=== PATIENT | female | born 1985 | race American Indian/Alaskan Native ===

== ENCOUNTER 2017-06-18 22:59 | Inpatient (IN) | payer MEDICAID ==
[2017-06-18] MEDS ORDERED: NITRO-BID 2% TP ONE (23:50)
[2017-06-18] MEDS ORDERED: LASIX IV ONE (23:51)
[2017-06-19 00:02] LABS: Basophils # (Auto) 0.1 K/mm3 (0.0-0.1); Basophils % (Auto) 1.4 % (0.0-1.8); Eosinophils % (Auto) 0.6 % (0.0-4.3); Lymphocytes # (Auto) 1.7 K/mm3 (1.2-5.4); Lymphocytes % (Auto) 27.1 % (13.4-35.0); Mean Corpuscular HGB Conc 30 % (30-34); Mean Corpuscular Volume 73 fl (79-97); Monocytes # (Auto) 0.3 K/mm3 (0.0-0.8); Monocytes % (Auto) 4.7 % (0.0-7.3); Platelet Count 383 K/mm3 (140-440); Red Blood Count 5.38 M/mm3 (3.65-5.03); Red Cell Distribution Width 17.6 % (13.2-15.2)
[2017-06-19 00:09] LABS: Hematocrit 39.5 % (30.3-42.9); Mean Corpuscular Hemoglobin 22 pg (28-32)
[2017-06-19 00:14] LABS: INR 1.23 (0.87-1.13)
[2017-06-19 00:15] LABS: Partial Thromboplastin Time 31.9 Sec. (24.2-36.6)
--- NOTE | 2017-06-19 00:22 | XRay Report ---
FINAL REPORT EXAM: XR CHEST ROUTINE 2V HISTORY: Shortness of breath TECHNIQUE: 2 views of the chest. PRIORS: None. FINDINGS: The cardiac silhouette is enlarged. There prominence of the central pulmonary vascularity and interstitial markings. There is mild blunting of the bilateral costophrenic angles. The bones and soft tissues are unremarkable. IMPRESSION: Findings are consistent with acute CHF. Small bilateral pleural effusions.
[2017-06-19 00:31] LABS: BUN/Creatinine Ratio 10; Blood Urea Nitrogen 9 mg/dL (7-17); Calcium 8.3 mg/dL (8.4-10.2); Hemolysis Index 4
--- NOTE | 2017-06-19 00:53 | Emergency Department Report ---
ED Shortness of Breath HPI - General Chief Complaint: Dyspnea/Respdistress Stated Complaint: CHF/SOB Time Seen by Provider: 06/18/17 23:51 Source: patient, RN/MD (cardiology outpatient record), old records reviewed Mode of arrival: Ambulatory Limitations: No Limitations - History of Present Illness Initial Comments: 32-year-old female with no known previously diagnosed medical problems was sent to the hospital by [facility] with the diagnosis of hypertension , cardiomyopathy, and CHF exacerbation. Patient is about 8 weeks . This was her third . She reports that during this she was hypertensive and was treated with medications and also had a diagnosis of preeclampsia. Since her delivery patient has been having progressively worsening shortness of breath, dyspnea on exertion, and orthopnea. Patient also has persistent lower extremity edema. Patient was started on Lasix 20 mg twice a day as outpatient and was sent for cardiology for echocardiogram. As per [facility] note patient had a echocardiogram that showed a 4 chamber dilated cardiomyopathy with EF of 15-20% . Patient also had moderate MR and a small circumferential pericardial effusion. Hospital admission was recommended and treatment IV diuretics, afterload agents, and beta blockers. Recommend repeat echo prior to discharge for follow-up effusion. Patient states she is not breast-feeding at this time. Patient complains of cough occasionally productive of blood-tinged mucus. Patient has mild to moderate chest pain with coughing only. - Related Data Allergies Allergy/AdvReac Type Severity Reaction Status Date / Time seafood Allergy Swelling Uncoded 06/18/17 23:21 ED Review of Systems ROS: Stated complaint: CHF/SOB Other details as noted in HPI Comment: All other systems reviewed and negative Other: Constitutional: No fevers chills Eyes: No eye pain visual changes ENT: No ear pain or throat pain Neck: Denies pain Respiratory: as per hpi Cardiovascular: Denies palpitations, syncope GI: Denies abdominal pain, nausea, vomiting, diarrhea : Denies dysuria Musculoskeletal: b/l edema Skin: Denies rash, lesions, erythema Neurologic: Denies headache, numbness, weakness Psychiatric: Denies suicidal ideation, hallucinations ED Past Medical Hx - Past Medical History Hx Hypertension: Yes Hx Congestive Heart Failure: Yes - Surgical History Additional Surgical History: . breast reduction - Social History Smoking Status: Never Smoker Substance Use Type: None ED Physical Exam - General Limitations: No Limitations - Other Other exam information: General: No limitations, moderate respiratory distress Head exam: Atraumatic, normocephalic Eyes exam: Normal appearance ENT: Moist mucous membrane, normal oropharynx Neck exam: Normal inspection, Respiratory exam: Tachypnea, mild accessory muscle use, crackles at the bases Cardiovascular: Tachycardic regular rhythm Abdomen: Soft, nondistended, and nontender, with normal bowel sounds, no rebound, or guarding Extremity: Full range of motion, bilateral lower extremity edema tenderness Back: Normal Inspection, full range of motion, no tenderness Neurologic: Alert, oriented x3, cranial nerves intact, no motor or sensory deficit Psychiatric: normal affect, normal mood Skin: Warm, dry, intact ED Course Vital Signs 06/18/17 23:17 Temperature 97.4 F L Pulse Rate 117 H Respiratory 28 H Rate Blood Pressure 185/139 O2 Sat by Pulse 94 Oximetry - Reevaluation(s) Reevaluation #1: 06/19/17 01:03 ed treatment initiated with diuretic therapy and blood pressure medications ED Medical Decision Making - Lab Data Result diagrams: 06/18/17 23:41 06/18/17 23:41 Lab Results 06/18/17 06/18/17 06/18/17 Range/Units 23:41 23:41 23:56 WBC 6.4 (4.5-11.0) K/mm3 RBC 5.38 H (3.65-5.03) M/mm3 Hgb 12.0 (10.1-14.3) gm/dl Hct 39.5 (30.3-42.9) % MCV 73 L (79-97) fl MCH 22 L (28-32) pg MCHC 30 (30-34) % RDW 17.6 H (13.2-15.2) % Plt Count 383 (140-440) K/mm3 Lymph % (Auto) 27.1 (13.4-35.0) % [place] % (Auto) 4.7 (0.0-7.3) % Eos % (Auto) 0.6 (0.0-4.3) % Baso % (Auto) 1.4 (0.0-1.8) % Lymph # 1.7 (1.2-5.4) K/mm3 [place] # 0.3 (0.0-0.8) K/mm3 Eos # 0.0 (0.0-0.4) K/mm3 Baso # 0.1 (0.0-0.1) K/mm3 Seg Neutrophils % 66.2 (40.0-70.0) % Seg Neutrophils # 4.3 (1.8-7.7) K/mm3 PT 16.2 H (12.2-14.9) Sec. INR 1.23 H (0.87-1.13) APTT 31.9 (24.2-36.6) Sec. Sodium 136 L (137-145) mmol/L Potassium 4.2 (3.6-5.0) mmol/L Chloride 98.1 (98-107) mmol/L Carbon Dioxide 25 (22-30) mmol/L Anion Gap 17 mmol/L BUN 9 (7-17) mg/dL Creatinine 0.9 (0.7-1.2) mg/dL Estimated GFR > 60 ml/min BUN/Creatinine Ratio 10 % Glucose 296 H (65-100) mg/dL Calcium 8.3 L (8.4-10.2) mg/dL Troponin T 0.025 (0.00-0.029) ng/mL NT-Pro-B Natriuret Pep 3187 H (0-450) pg/mL - EKG Data -: EKG Interpreted by Ut EKG shows normal: sinus rhythm, axis (5), QRS complexes (89), ST-T waves (no stemi) Rate: tachycardia (116) - EKG Data When compared to previous EKG there are: no significant change - Radiology Data Radiology results: report reviewed Chest x-ray read by radiologist Findings consistent with acute CHF. Small bilateral pleural effusion - Medical Decision Making cardiomyopathy Associated with acute CHF Associated with uncontrolled hypertension Nitro paste initiated Lasix 60 mg IV initiated Hospitalist informed for admission pee heart cardiac consultation hyperglycemia regular insulin initiated possible new onset dm but unlikely a fasting level - Differential Diagnosis CHF, SD, PE, cardiomyopathy, hypertensive emergency Critical Care Time: No Critical care attestation.: If time is entered above; I have spent that time in minutes in the direct care of this critically ill patient, excluding procedure time. ED Disposition Clinical Impression: cardiomyopathy, CHF exacerbation, Elevated glucose level Disposition: OP ADMIT IP TO THIS HOSP Is pt being admited?: Yes Condition: Stable Time of Disposition: 00:53 (Dr Flowers/hosp)
[2017-06-19] MEDS ORDERED: DULCOLAX PR PRN (02:02)
[2017-06-19] MEDS ORDERED: ZOFRAN IV PRN (02:02)
[2017-06-19] MEDS ORDERED: MILK OF MAGNESIA PO PRN (02:02)
[2017-06-19] MEDS ORDERED: NACL 0.9% 1000 ML 1,000 ML ONE (02:29)
[2017-06-19] MEDS ORDERED: APRESOLINE IV PRN (02:36)
[2017-06-19] MEDS ORDERED: APRESOLINE IV ONE (02:39)
[2017-06-19] MEDS ORDERED: APRESOLINE ONE (02:44)
[2017-06-19] MEDS ORDERED: TYLENOL ONE (02:45)
[2017-06-19] MEDS: TYLENOL PO PRN ×2 (02:54→06:49)
--- NOTE | 2017-06-19 03:43 | History and Physical Report ---
History of Present Illness Date of examination: 06/19/17 Date of admission: 06/19/17 02:02 History of present illness: 32-year-old woman with a history of hypertension, whose 2 months and was sent to the emergency room by cardiology for evaluation of her shortness of breath. Symptoms of shortness of breath, nonproductive cough is been going on since delivery of her child, also complaining of PND, orthopnea, lower extremity edema. She was placed on Lasix over the last 2 weeks but her symptoms have progressed. She had an echocardiogram in the [facility] office which showed an EF of 15-20%, moderate mitral regurg. Also complaining of chest pain, pain in the epigastric area, worse with coughing, intensity followed 10, no radiation, she cannot identify exacerbating or relieving factors. No nausea vomiting, diaphoresis or palpitation. Patient had preeclampsia during her Review Of Systems: Constitutional: no weight loss Ears, eyes, nose, mouth and throat: no nasal congestion, no nasal discharge, no sinus pressure, blurry vision, diplopia Neck: No neck pain or rigidity. Cardiovascular: No palpitations Respiratory: +shortness of breath, cough Gastrointestinal: No abdominal pain, hematochezia Genitourinary : no dysuria, frequency , hematuria Musculoskeletal: no muscle ache Integumentary: no rash, no pruritis Neurological: no parathesias, focal weakness Endocrine: no cold or heat intolerance, no polyuria or polydipsia Hematologic/Lymphatic: no easy bruising, no easy bleeding, no gland swelling Allergic/Immunologic: no urticaria, no angioedema. PAST MEDICAL HISTORY:hypertension PAST SURGICAL HISTORY: 3, breast reduction FAMILY HISTORY:hypertension SOCIAL HISTORY: Denies alcohol, tobacco, drugs Medications and Allergies Allergies Allergy/AdvReac Type Severity Reaction Status Date / Time seafood Allergy Swelling Uncoded 06/18/17 23:21 Active Meds: Active Medications Acetaminophen (Tylenol) 650 mg PO Q4H PRN PRN Reason: Pain MILD(1-3)/Fever >100.5/NUNEZ Last Admin: 06/19/17 02:54 Dose: 650 mg Aspirin (Baby Aspirin) 81 mg PO QDAY EZRA Bisacodyl (Dulcolax) 10 mg NM QDAY PRN PRN Reason: Constipation unrelieved by MOM Carvedilol (Coreg) 25 mg PO BID EZRA Furosemide (Lasix) 40 mg IV BID@0600,1800 EZRA Hydralazine HCl (Apresoline) 5 mg IV Q6H PRN PRN Reason: blood pressure Lisinopril (Zestril) 2.5 mg PO QDAY EZRA Magnesium Hydroxide (Milk Of Magnesia) 30 ml PO Q4H PRN PRN Reason: Constipation Ondansetron HCl (Zofran) 4 mg IV Q8H PRN PRN Reason: N/V unrelieved by Reglan Exam - Physical Exam Narrative exam: Gen. appearance: Patient lying in bed in no acute distress HEENT: Normocephalic/atraumatic, pupils equal round reactive to light, extra occular movement intact, no scleral icterus, no JVD or thyromegaly or nodule, neck is supple, mucous membrane moist, no erythema or exudate Heart: S1-S2, regular rate and rhythm Lungs: Crackles bilateral breathing comfortable Abdomen: Positive bowel sounds, nontender, nondistended, no organomegaly Extremities: No edema, cyanosis, clubbing Neuro:: Oriented 3 , cranial nerves II-12 intact, speech, motor intact Skin: No rash, nodules, warm dry - Constitutional Vitals: Temp Pulse Resp BP Pulse Ox 97.4 F L 117 H 22 185/137 99 06/18/17 23:17 06/19/17 02:53 06/19/17 02:31 06/19/17 02:53 06/19/17 02:31 Results - Labs CBC & Chem 7: 06/18/17 23:41 06/18/17 23:41 Labs: Abnormal lab results 06/18/17 06/18/17 06/18/17 Range/Units 23:41 23:41 23:56 RBC 5.38 H (3.65-5.03) M/mm3 MCV 73 L (79-97) fl MCH 22 L (28-32) pg RDW 17.6 H (13.2-15.2) % PT 16.2 H (12.2-14.9) Sec. INR 1.23 H (0.87-1.13) D-Dimer (0-234) ng/mlDDU Sodium 136 L (137-145) mmol/L Glucose 296 H (65-100) mg/dL POC Glucose (70-105) Calcium 8.3 L (8.4-10.2) mg/dL NT-Pro-B Natriuret Pep 3187 H (0-450) pg/mL 06/19/17 06/19/17 Range/Units 01:23 02:27 RBC (3.65-5.03) M/mm3 MCV (79-97) fl MCH (28-32) pg RDW (13.2-15.2) % PT (12.2-14.9) Sec. INR (0.87-1.13) D-Dimer 614.05 H (0-234) ng/mlDDU Sodium (137-145) mmol/L Glucose (65-100) mg/dL POC Glucose 250 H (70-105) Calcium (8.4-10.2) mg/dL NT-Pro-B Natriuret Pep (0-450) pg/mL - Imaging and Cardiology EKG: image reviewed Chest x-ray: image reviewed Assessment and Plan Assessment Acute on chronic CHF, systolic dysfunction, Hypertension Plan Admit to medicine Diurese with IV Lasix Monitor I's and O's, daily weights Start beta brian, ZENA inhibitor, aspirin Check cardiac enzymes, consult cardiology Echo was done recently Check CT chest, rule out PE DVT prophylaxis
--- NOTE | 2017-06-19 04:01 | Cat Scan Report ---
FINAL REPORT EXAM: CT ANGIO CHEST HISTORY: , eval for PE SOB COMPARISON: Chest x-ray from June 18, 2017. TECHNIQUE: Contiguous axial images were obtained. Additional sagittal and coronal reformatted images were obtained. Administration of IV contrast given per institution protocol. Images submitted for interpretation. 100 cc Omnipaque 350. Max intensity projection images. FINDINGS: Mild cardiac enlargement. Small pericardial effusion measuring 10 millimeters in greatest thickness. Thoracic aorta is normal in caliber. No dissection. No pulmonary embolus. No pathologically enlarged intrathoracic or axillary lymph nodes. Small left and small to moderate right-sided pleural effusions. Diffuse bronchial wall thickening septal thickening throughout the lungs concerning for edema. At the medial margin of the right upper lobe there is a focal airspace consolidation measuring approximately 5 x 4 centimeters. This is concerning for focus of superimposed pneumonia. There is several hypodense splenic lesions. These may reflect small cysts or hemangiomas. At the superior margin right hepatic lobe there is a 5 millimeter low-attenuation lesion. This is too small to accurately characterize but may reflect a small cyst. Bony thorax is grossly intact. IMPRESSION: No pulmonary embolus. Mild cardiac enlargement with small pericardial effusion. Small left and small to moderate right-sided pleural effusions with septal thickening and bronchial wall thickening concerning for pulmonary edema. Focal airspace consolidation at the medial margin right upper lobes concerning for superimposed pneumonia.
[2017-06-19] MEDS: LASIX IV SCH ×2 (06:49→17:14)
[2017-06-19] MEDS: BABY ASPIRIN PO SCH (09:37)
[2017-06-19] MEDS ORDERED: COREG PO SCH (10:00)
[2017-06-19] MEDS ORDERED: ZESTRIL PO SCH (10:00)
[2017-06-19] MEDS: COREG PO SCH ×2 (10:28→22:03)
[2017-06-19] MEDS: ALDACTONE PO SCH (10:49)
[2017-06-19] MEDS: K-DUR PO SCH (10:50)
--- NOTE | 2017-06-19 15:05 | Progress Note ---
Assessment and Plan Acute systolic heart failure Post Cardiomyopathy Outpatient echocardiogram reports a 4 chamber dilated cardiomyopathy, EF 15-20% . In addition, a moderate MR and a small pericardial effusion. Recommendations: Advised against breast feeding. Fluid/sodium restrictions. Continue medical therapy for heart failure. Subjective Date of service: 06/19/17 Interval history: Patient reports her breathing is better. Objective Vital Signs Temp Pulse Resp BP BP Pulse Ox 06/19/17 12:20 98.0 F 81 20 120/86 97 06/19/17 10:49 162/104 06/19/17 09:38 101 H 162/104 06/19/17 09:37 101 H 162/104 06/19/17 09:31 97.9 F 101 H 18 162/104 99 06/19/17 02:53 117 H 185/137 06/19/17 02:31 22 99 06/19/17 02:30 114 H 22 174/128 100 06/19/17 02:12 183/141 06/19/17 01:47 183/141 81 L 06/19/17 01:30 174/134 99 06/19/17 01:27 113 H 173/130 06/19/17 01:15 173/130 96 06/19/17 01:00 183/138 97 06/19/17 00:45 183/141 96 06/19/17 00:30 193/143 94 06/19/17 00:15 184/135 97 06/19/17 00:13 184/135 96 06/18/17 23:17 97.4 F L 117 H 28 H 185/139 94 - Physical Examination General: No Apparent Distress HEENT: Positive: PERRL Neck: Positive: trachea midline Cardiac: Positive: Reg Rate and Rhythm Lungs: Positive: Decreased Breath Sounds Neuro: Positive: Grossly Intact Extremities: Present: +2 Edema - Labs and Meds Coagulation 06/18/17 Range/Units 23:56 PT 16.2 H (12.2-14.9) Sec. INR 1.23 H (0.87-1.13) APTT 31.9 (24.2-36.6) Sec. CBC 06/18/17 Range/Units 23:41 WBC 6.4 (4.5-11.0) K/mm3 RBC 5.38 H (3.65-5.03) M/mm3 Hgb 12.0 (10.1-14.3) gm/dl Hct 39.5 (30.3-42.9) % Plt Count 383 (140-440) K/mm3 Lymph # 1.7 (1.2-5.4) K/mm3 [place] # 0.3 (0.0-0.8) K/mm3 Eos # 0.0 (0.0-0.4) K/mm3 Baso # 0.1 (0.0-0.1) K/mm3 Comprehensive Metabolic Panel 06/18/17 Range/Units 23:41 Sodium 136 L (137-145) mmol/L Potassium 4.2 (3.6-5.0) mmol/L Chloride 98.1 (98-107) mmol/L Carbon Dioxide 25 (22-30) mmol/L BUN 9 (7-17) mg/dL Creatinine 0.9 (0.7-1.2) mg/dL Glucose 296 H (65-100) mg/dL Calcium 8.3 L (8.4-10.2) mg/dL - Imaging and Cardiology EKG: image reviewed
[2017-06-19] MEDS ORDERED: D50W (25GM) Syringe IV PRN (15:30)
[2017-06-19] MEDS: NOVOLOG SUB-Q SCH ×2 (17:13→22:04)
[2017-06-19] MEDS: ZESTRIL PO SCH (17:13)
[2017-06-20] MEDS: LASIX IV SCH (05:44)
[2017-06-20 06:18] LABS: Hematocrit 34.2 % (30.3-42.9); Hemoglobin 10.9 gm/dl (10.1-14.3); Mean Corpuscular HGB Conc 32 % (30-34); Mean Corpuscular Volume 72 fl (79-97); Platelet Count 303 K/mm3 (140-440); Red Blood Count 4.75 M/mm3 (3.65-5.03); Red Cell Distribution Width 17.2 % (13.2-15.2)
[2017-06-20 06:21] LABS: BUN/Creatinine Ratio 16; Blood Urea Nitrogen 11 mg/dL (7-17); Calcium 7.6 mg/dL (8.4-10.2); Hemolysis Index 4
[2017-06-20 06:29] LABS: Mean Corpuscular Hemoglobin 23 pg (28-32)
[2017-06-20] MEDS: NOVOLOG SUB-Q SCH ×4 (08:25→22:48)
[2017-06-20] MEDS ORDERED: MAGNESIUM SULFATE 2GM/50ML 2 GM/50 ML BAG IV NR (09:03)
[2017-06-20] MEDS ORDERED: K-DUR PO NR (09:03)
[2017-06-20] MEDS: ALDACTONE PO SCH (10:04)
[2017-06-20] MEDS: K-DUR PO SCH (10:04)
[2017-06-20] MEDS: COREG PO SCH ×2 (10:05→22:46)
[2017-06-20] MEDS: BABY ASPIRIN PO SCH (10:05)
--- NOTE | 2017-06-20 10:23 | Progress Note ---
Assessment and Plan Acute systolic heart failure Post Cardiomyopathy Hypomagnesemia Outpatient echocardiogram reports a 4 chamber dilated cardiomyopathy, EF 15-20% . In addition, a moderate MR and a small pericardial effusion. Recommendations: Continue medical therapy for heart failure. Advised against breast feeding. Advised fluid/sodium restrictions. Repeat echocardiogram before discharge. Stable cardiac moreno. Subjective Date of service: 06/20/17 Interval history: Patient reports her breathing is better. She reports she is diuresing well. Objective Vital Signs Temp Pulse Resp BP BP Pulse Ox 06/20/17 10:05 91 H 154/106 06/20/17 10:04 91 H 154/106 06/20/17 09:08 97.5 F L 91 H 18 154/106 97 06/20/17 06:00 90 06/20/17 05:56 98.0 F 92 H 18 142/100 96 06/20/17 05:16 98.0 F 90 18 142/100 97 06/20/17 00:37 97.9 F 92 H 18 138/101 99 06/19/17 22:03 93 H 133/95 06/19/17 22:00 115 H 06/19/17 21:06 98.0 F 92 H 06/19/17 18:09 97.6 F 86 20 145/104 99 06/19/17 17:14 145/104 06/19/17 17:13 145/104 06/19/17 16:58 97.6 F 87 30 H 145/104 97 06/19/17 14:32 105 H 06/19/17 12:20 98.0 F 81 20 120/86 97 06/19/17 11:44 98.0 F 81 20 120/86 96 06/19/17 10:49 162/104 - Physical Examination General: No Apparent Distress HEENT: Positive: PERRL Neck: Positive: trachea midline Cardiac: Positive: Reg Rate and Rhythm Lungs: Positive: Decreased Breath Sounds Neuro: Positive: Grossly Intact Extremities: Present: +1 Edema - Labs and Meds CBC 06/20/17 Range/Units 04:58 WBC 4.9 (4.5-11.0) K/mm3 RBC 4.75 (3.65-5.03) M/mm3 Hgb 10.9 (10.1-14.3) gm/dl Hct 34.2 (30.3-42.9) % Plt Count 303 (140-440) K/mm3 Comprehensive Metabolic Panel 06/20/17 Range/Units 04:58 Sodium 142 (137-145) mmol/L Potassium 3.4 L (3.6-5.0) mmol/L Chloride 100.7 (98-107) mmol/L Carbon Dioxide 28 (22-30) mmol/L BUN 11 (7-17) mg/dL Creatinine 0.7 (0.7-1.2) mg/dL Glucose 246 H (65-100) mg/dL Calcium 7.6 L (8.4-10.2) mg/dL - Imaging and Cardiology EKG: image reviewed
[2017-06-20] MEDS: ZESTRIL PO SCH (16:09)
--- NOTE | 2017-06-20 16:33 | Progress Note ---
Assessment and Plan Assessment and plan: Patient is 32-year-old woman with history of hypertension and cardiomyopathy/ CHF with EF 15- 20% after the of her child ~2 months ago and moderate mitral regurgitation who presents with shortness of breath 2v CXR Findings are consistent with acute CHF. Small bilateral pleural effusions. CTA chest reported as No pulmonary embolus. Mild cardiac enlargement with small pericardial effusion. Small left and small to moderate right-sided pleural effusions with septal thickening and bronchial wall thickening concerning for pulmonary edema. Focal airspace consolidation at the medial margin right upper lobes concerning for superimposed pneumonia. Limited transthoracic echocardiogram for pericardial effusion reported as left ventricular chamber size mildly dilated, severe global hypokinesia of left ventricle, estimated ejection fraction is 10-15%, left atrium is severely dilated, RVSP is moderately reduced, calculated at 38 mmHg, right atrium is moderately dilated, there is small pericardial effusion, there is no change in dementia noted inferior vena cava with respiration consistent with markedly increased right atrial pressure, dyspnea limited study to evaluate pericardial effusion -Acute on chronic systolic heart failure: Treat with IV diuretics, cardiology is following -Hypomagnesemia: Replace with IV magnesium and repeat in a.m. -Hypokalemia: Replace and recheck in a.m. -Hyperglycemia, no diagnosis of diabetes mellitus runs in her family, most likely a new diagnosis of diabetes mellitus type 2: Check A1c, start sliding scale insulin, long-acting insulin tonight, have asked the nurses to teach insulin, no metformin started due to contrast dye -Worsening dilated cardiomyopathy: Cardiology ordered LifeVest and is pending -Hypertension urgency: IV hydralazine when necessary -DVT prophylaxis: ordered Subcutaneous heparin full code Patient has been advise no Follow up A1c in am, check magnesium am, Maybe safe to discharge with oral hypoglycemics Dispositiion: Waiting on [facility] History Interval history: 1Patient was seen and examined. Follow-up on current diagnosis sob which has resolved, she wants to go home. Overnight uneventful. Patient denies any chest pain, shortness breath, nausea/vomiting or severe headaches. Imaging, nursing note, chart, labs and old chart reviewed. Discussed with patient. Hospitalist Physical - Physical exam Narrative exam: GEN: WDWN, unkempt hair, NAD, AWAKE, ALERT, ORIENTATED 3 HEENT: NCAT, EOMI, PERRL, OP Clear NECK: supple, no adenopathy, no thyromegaly, no JVD CVS/HEART: RRR, NORMAL S1S2, NO JVD, pulses present bilaterally CHEST/LUNGS: diminised bs, Symmetrical chest expansion, good air entry bilaterally GI/Abdomen: soft, NTND, good bowel sounds, no guarding or rebound /Bladder: no suprapubic tenderness, no CVA or paraspinal tenderness EXT/Skin: ble edema no obvious rash, puffy legs but no pitting edema MSK: FROM x 4 Neuro: CN 2-12 grossly intact, no new focal deficits Psych: calm - Constitutional Vitals: Temp Pulse Resp BP Pulse Ox 97.5 F L 90 16 145/109 97 06/20/17 09:08 06/20/17 16:09 06/20/17 10:00 06/20/17 16:09 06/20/17 10:00 Results - Labs CBC & Chem 7: 06/20/17 04:58 06/20/17 04:58 Labs: Laboratory Last Values WBC 4.9 K/mm3 (4.5-11.0) 06/20/17 04:58 RBC 4.75 M/mm3 (3.65-5.03) 06/20/17 04:58 Hgb 10.9 gm/dl (10.1-14.3) 06/20/17 04:58 Hct 34.2 % (30.3-42.9) 06/20/17 04:58 MCV 72 fl (79-97) L 06/20/17 04:58 MCH 23 pg (28-32) L 06/20/17 04:58 MCHC 32 % (30-34) 06/20/17 04:58 RDW 17.2 % (13.2-15.2) H 06/20/17 04:58 Plt Count 303 K/mm3 (140-440) 06/20/17 04:58 Lymph % (Auto) 27.1 % (13.4-35.0) 06/18/17 23:41 [place] % (Auto) 4.7 % (0.0-7.3) 06/18/17 23:41 Eos % (Auto) 0.6 % (0.0-4.3) 06/18/17 23:41 Baso % (Auto) 1.4 % (0.0-1.8) 06/18/17 23:41 Lymph # 1.7 K/mm3 (1.2-5.4) 06/18/17 23:41 [place] # 0.3 K/mm3 (0.0-0.8) 06/18/17 23:41 Eos # 0.0 K/mm3 (0.0-0.4) 06/18/17 23:41 Baso # 0.1 K/mm3 (0.0-0.1) 06/18/17 23:41 Seg Neutrophils % 66.2 % (40.0-70.0) 06/18/17 23:41 Seg Neutrophils # 4.3 K/mm3 (1.8-7.7) 06/18/17 23:41 PT 16.2 Sec. (12.2-14.9) H 06/18/17 23:56 INR 1.23 (0.87-1.13) H 06/18/17 23:56 APTT 31.9 Sec. (24.2-36.6) 06/18/17 23:56 D-Dimer 614.05 ng/mlDDU (0-234) H 06/19/17 01:23 Sodium 142 mmol/L (137-145) 06/20/17 04:58 Potassium 3.4 mmol/L (3.6-5.0) L 06/20/17 04:58 Chloride 100.7 mmol/L (98-107) 06/20/17 04:58 Carbon Dioxide 28 mmol/L (22-30) 06/20/17 04:58 Anion Gap 17 mmol/L 06/20/17 04:58 BUN 11 mg/dL (7-17) 06/20/17 04:58 Creatinine 0.7 mg/dL (0.7-1.2) 06/20/17 04:58 Estimated GFR > 60 ml/min 06/20/17 04:58 BUN/Creatinine Ratio 16 % 06/20/17 04:58 Glucose 246 mg/dL (65-100) H 06/20/17 04:58 POC Glucose 92 (70-105) 06/19/17 21:40 Calcium 7.6 mg/dL (8.4-10.2) L 06/20/17 04:58 Magnesium 1.30 mg/dL (1.7-2.3) L 06/20/17 04:58 Troponin T 0.025 ng/mL (0.00-0.029) 06/18/17 23:41 NT-Pro-B Natriuret Pep 3187 pg/mL (0-450) H 06/18/17 23:41
[2017-06-20] MEDS ORDERED: MAGNESIUM SULFATE IV ONE (21:36)
[2017-06-20] MEDS ORDERED: LEVEMIR SUB-Q SCH (22:00)
[2017-06-20] MEDS ORDERED: MAGNESIUM SULFATE 3 GM in D5W 100 ML IV ONE (22:00)
[2017-06-20] MEDS: HEPARIN SUB-Q SCH (22:47)
[2017-06-21] MEDS: HEPARIN SUB-Q SCH (05:31)
[2017-06-21] MEDS: LASIX IV SCH (05:32)
[2017-06-21 06:34] LABS: Hematocrit 35.8 % (30.3-42.9); Mean Corpuscular HGB Conc 31 % (30-34); Mean Corpuscular Volume 72 fl (79-97); Platelet Count 316 K/mm3 (140-440); Red Blood Count 4.99 M/mm3 (3.65-5.03); Red Cell Distribution Width 17.2 % (13.2-15.2)
[2017-06-21 06:36] LABS: Mean Corpuscular Hemoglobin 22 pg (28-32)
[2017-06-21 06:54] LABS: BUN/Creatinine Ratio 18; Blood Urea Nitrogen 11 mg/dL (7-17); Hemolysis Index 27
[2017-06-21] MEDS: ZESTRIL PO SCH (09:40)
[2017-06-21] MEDS: COREG PO SCH (09:40)
[2017-06-21] MEDS: NOVOLOG SUB-Q SCH ×2 (09:41→13:02)
[2017-06-21] MEDS: BABY ASPIRIN PO SCH (09:41)
[2017-06-21] MEDS: ALDACTONE PO SCH (09:44)
[2017-06-21] MEDS: K-DUR PO SCH (09:44)
[2017-06-21] MEDS ORDERED: COREG PO SCH (10:00)
--- NOTE | 2017-06-21 11:51 | Discharge Summary ---
Providers - Providers Date of Admission: 06/19/17 02:02 Attending physician: MARSHA SAVAGE MD 06/19/17 01:04 Consult to Physician [CONS] Urgent Consulting Provider: RAY RAE Reason For Exam: cardiomyopathy Notified:: n Primary care physician: MARGARET ANG Hospitalization Reason for admission: shortness of breath Condition: Stable Hospital course: Patient is 32-year-old woman with history of hypertension and cardiomyopathy/ CHF with EF 15- 20% after the of her child ~2 months ago and moderate mitral regurgitation who presents with shortness of breath. Patient was noted to have a spot on cardiomyopathy with acute on chronic systolic congestive heart failure she was treated with IV Lasix also was noted to have new onset diabetes mellitus. Was started on metformin on discharge. She is to monitor her blood sugar at home. She is to follow-up with cardiology and also with her [employer]. She understands not to breast-feed her child due to the medications that she was started on. She was fitted for LifeVest prior to discharge. Discharge diagnosis -Acute on chronic systolic heart failure -Hypomagnesemia -Hypokalemia -Hyperglycemia -post dilated cardiomyopathy -Hypertension urgency Disposition: DC-01 TO HOME OR SELFCARE Time spent for discharge: 35 mins Core Measure Documentation - Palliative Care Palliative Care/ Comfort Measures: Not Applicable - Core Measures Any of the following diagnoses?: heart failure - VTE Discharge Requirements Deep Vein Thrombosis/Pulmonary Embolism Present on Admission: No - Heart Failure Discharge Requirements ZENA/ARB for LVSD if EF <40%: Yes Beta brian at discharge: Yes Exam - Physical Exam Narrative exam: GEN: WDWN,NAD, AWAKE, ALERT, ORIENTATED 3 HEENT: NCAT, EOMI, PERRL, OP Clear NECK: supple, no adenopathy, no thyromegaly, no JVD CVS/HEART: RRR, NORMAL S1S2, NO JVD, pulses present bilaterally CHEST/LUNGS: diminised bs, Symmetrical chest expansion, good air entry bilaterally GI/Abdomen: soft, NTND, good bowel sounds, no guarding or rebound /Bladder: no suprapubic tenderness, no CVA or paraspinal tenderness EXT/Skin: ble edema no obvious rash, puffy legs but no pitting edema MSK: FROM x 4 Neuro: CN 2-12 grossly intact, no new focal deficits Psych: calm - Constitutional Vitals: Temp Pulse Resp BP Pulse Ox 98.3 F 91 H 18 152/109 92 06/21/17 08:28 06/21/17 10:37 06/21/17 08:28 06/21/17 10:37 06/21/17 08:28 Plan Activity: advance as tolerated, fall precautions Diet: low fat, low salt, diabetic Special Instructions: record daily BP diary, record blood sugar diary, smoking cessation, other (No breast feeding) Durable Medical Equipment Needed Upon Discharge: other (lifevest) Additional Instructions: BMP IN 3-5 DAYS Follow up with: MARGARET ANG MD [Primary Care Provider] - 7 Days EFRAIN MCKEON MD [Staff Physician] - 7 Days Prescriptions: Aspirin [Aspirin BABY CHEW TAB] 81 mg PO QDAY #30 tab.chew Carvedilol [Coreg] 12.5 mg PO BID #60 tablet Furosemide [Lasix TAB] 40 mg PO QDAY #30 tablet Lisinopril [Zestril TAB] 20 mg PO QDAY #30 tablet metFORMIN [Glucophage] 500 mg PO BID #60 tablet Spironolactone [Aldactone] 25 mg PO QDAY #30 tablet Other Discharge Orders: Glucometer (Amb) Location: Determined By Patient Glucometer supplies[Amb] Location: Determined By Patient
[2017-06-21 12:52] VITALS: BP 148/115
--- NOTE | 2017-06-21 12:59 | Progress Note ---
Assessment and Plan - Patient Problems (1) CHF exacerbation Current Visit: Yes Status: Acute (2) Elevated glucose level Current Visit: Yes Status: Acute (3) cardiomyopathy Current Visit: Yes Status: Acute Plan to address problem: STABLE,,,F\U WITH EP/YUDITH,,,,CHECK BP AT HOME Subjective Date of service: 06/21/17 Interval history: NO C\O Objective Vital Signs Temp Pulse Resp BP BP Pulse Ox 06/21/17 12:49 98.3 F 88 18 148/115 97 06/21/17 10:37 91 H 152/109 06/21/17 09:44 91 H 152/109 06/21/17 09:40 91 H 152/109 06/21/17 08:28 98.3 F 91 H 18 152/109 92 06/21/17 06:21 97.8 F 92 H 16 146/115 95 06/21/17 06:00 90 06/21/17 00:26 97.4 F L 97 H 16 152/114 99 06/20/17 22:46 94 H 159/118 06/20/17 22:00 97 H 06/20/17 21:35 98.2 F 92 H 18 159/118 95 06/20/17 16:44 97.7 F 87 20 145/109 98 06/20/17 16:09 90 145/109 06/20/17 15:54 97.7 F 89 20 145/109 96 - Physical Examination General: No Apparent Distress HEENT: Positive: PERRL Neck: Positive: trachea midline Cardiac: Positive: Reg Rate and Rhythm Lungs: Positive: clear to auscultation Neuro: Positive: Grossly Intact Extremities: Present: +1 Edema - Labs and Meds CBC 06/21/17 Range/Units 05:33 WBC 4.9 (4.5-11.0) K/mm3 RBC 4.99 (3.65-5.03) M/mm3 Hgb 11.0 (10.1-14.3) gm/dl Hct 35.8 (30.3-42.9) % Plt Count 316 (140-440) K/mm3 Comprehensive Metabolic Panel 06/21/17 Range/Units 05:33 Sodium 140 (137-145) mmol/L Potassium 3.2 L (3.6-5.0) mmol/L Chloride 100.0 (98-107) mmol/L Carbon Dioxide 26 (22-30) mmol/L BUN 11 (7-17) mg/dL Creatinine 0.6 L (0.7-1.2) mg/dL Glucose 155 H (65-100) mg/dL Calcium 8.0 L (8.4-10.2) mg/dL - Imaging and Cardiology EKG: image reviewed
== END 2017-06-21 13:30 | disposition home or self-care (01) | DRG 293 ==
LOC: ED 22:59 → 4A 06-19 02:02
PROVIDERS: ADMIT Internal Medicine; ATTEND Internal Medicine
DX: I11.0 Hypertensive heart disease with heart failure (principal); I42.0 Dilated cardiomyopathy; E87.6 Hypokalemia; E83.42 Hypomagnesemia; I16.0 Hypertensive urgency; I50.23 Acute on chronic systolic (congestive) heart failure; E11.65 Type 2 diabetes mellitus with hyperglycemia; Z91.013 Allergy to seafood; Z82.49 Family history of ischemic heart disease and other diseases of the circulatory system
CPT/HCPCS: 36415; 71046; 71275; 80048; 82962; 83036; 83735; 83880; 84484; 85025; 85027; 85379; 85610; 85730; 93005; 93010; 93308; 93321; 93325; 96374; 96375; 99285; J0360; J1644; J1815; J1818; J1940; J3475; J7030; Q9967